=== PATIENT | female | born 1965 | race Hispanic/Latino ===

== ENCOUNTER 2021-10-02 10:39 | Inpatient (IN) | payer OTHER ==
[2021-10-02] VITALS (7 sets, daily range): BP systolic 124–141; BP diastolic 57–83
[~2021-10-02] VITALS: Ht 160 cm; Wt 65.8 kg
[2021-10-02 11:00] LABS: BASOPHILS % (AUTO) 0.2 % (0.0-5.0); EOSINOPHILS % (AUTO) 1.4 % (0.0-8.0); HEMATOCRIT 41.1 % (36-48); LYMPHOCYTES % (AUTO) 26.8 % (21.0-51.0); MEAN CORPUSCULAR HEMOGLOBIN 27.7 pg (27.0-33.0); MEAN CORPUSCULAR HGB CONC 33.6 g/dL (32.0-36.0); MEAN CORPUSCULAR VOLUME 82.5 fL (79-99); MONOCYTES % (AUTO) 4.9 % (3.0-13.0); NEUTROPHILS % (AUTO) 66.3 % (40.0-77.0); PLATELET COUNT (AUTO) 271 K/uL (130-400); RED BLOOD CELL COUNT(AUTO) 4.98 MIL/uL (4.00-5.50); RED CELL DISTRIBUTION WIDTH 12.6 % (11.0-15.5); WHITE BLOOD COUNT (AUTO) 5.7 K/uL (4.8-10.8)
[2021-10-02] MEDS ORDERED: 0.9%NACL 1000ML 1,000 ML IV ONE (11:00)
[2021-10-02 11:22] LABS: ALBUMIN 3.2 g/dL (3.5-5.0); BILIRUBIN,TOTAL 0.3 mg/dL (0.2-1.0); CREATININE 0.4 mg/dL (0.5-1.5); POTASSIUM 3.7 mmol/L (3.5-5.1); TOTAL PROTEIN, SERUM 6.5 g/dL (6.0-8.3)
[2021-10-02 11:55] LABS: ABG BASE EXCESS -0.4 mmol/L (-2.0-3.0); ABG HCO3 23.3 mmol/L (21.0-28.0); ABG OXYGEN SATURATION 97.5 % (95.0-99.0); ABG PCO2 36 mmHg (32-45)
[2021-10-02] MEDS ORDERED: ENOXAPARIN SODIUM 1 MG/KG SQ SCH (12:00)
[2021-10-02] MEDS ORDERED: ENOXAPARIN SODIUM 80 MG/0.8 ML SQ SCH (13:00)
[2021-10-02] MEDS ORDERED: INSULIN HUMULIN R 100 UNIT/ML 3ML IV ONE (13:00)
[2021-10-02 14:39] LABS: CREATININE 0.3 mg/dL (0.5-1.5); POTASSIUM 3.3 mmol/L (3.5-5.1)
[2021-10-02] MEDS ORDERED: POTASSIUM BICARB/CIT AC 25 MEQ TABLET.EFF PO ONE (15:30)
[2021-10-02] MEDS ORDERED: HYDRALAZINE 20MG/ML VIAL IV PRN (15:30)
[2021-10-02] MEDS ORDERED: DOCUSATE SODIUM 100 MG CAP PO PRN (15:30)
[2021-10-02] MEDS ORDERED: LABETALOL 20MG SYG IV PRN (15:30)
[2021-10-02] MEDS ORDERED: LACTULOSE 20 GM/30 ML UDCUP PO PRN (15:30)
[2021-10-02] MEDS ORDERED: ACETAMINOPHEN 650 MG SUPPOSITORY RC PRN (15:30)
[2021-10-02] MEDS ORDERED: ACETAMINOPHEN 325 MG TAB PO PRN (15:30)
[2021-10-02] MEDS ORDERED: ONDANSETRON 4MG INJ IVP PRN (15:30)
[2021-10-02] MEDS ORDERED: LIDOCAINE HCL-MPF 1% 2ML VIAL IV PRN (16:00)
[2021-10-02] MEDS ORDERED: POTASSIUM CHLORIDE 20MEQ/100ML 100 ML IV PRN (16:00)
[2021-10-02] MEDS ORDERED: POTASSIUM CHLORIDE 10% ELIXIR 20 MEQ/15 ML UDCUP PO PRN (16:00)
[2021-10-02] MEDS: KCL 20 MEQ ERTAB PO PRN ×2 (16:56→21:43)
[2021-10-02] MEDS: INSULIN HUMULIN R 100 UNIT/ML 3ML SQ SCH ×2 (16:58→21:32)
[2021-10-02] MEDS ORDERED: METF-445 PO (17:40)
[2021-10-02] MEDS: TRAMADOL HCL 50 MG TABLET PO PRN (21:38)
[2021-10-03] VITALS (7 sets, daily range): BP systolic 103–135; BP diastolic 59–79
[2021-10-03] MEDS: KCL 20 MEQ ERTAB PO PRN (02:10)
[2021-10-03 04:47] LABS: HEMATOCRIT 39.2 % (36-48); MEAN CORPUSCULAR HEMOGLOBIN 27.5 pg (27.0-33.0); MEAN CORPUSCULAR HGB CONC 32.9 g/dL (32.0-36.0); MEAN CORPUSCULAR VOLUME 83.6 fL (79-99); RED BLOOD CELL COUNT(AUTO) 4.69 MIL/uL (4.00-5.50); RED CELL DISTRIBUTION WIDTH 12.8 % (11.0-15.5); WHITE BLOOD COUNT (AUTO) 7.6 K/uL (4.8-10.8)
[2021-10-03 04:54] LABS: HEMOGLOBIN A1C 12.9 % (4.0-6.0)
[2021-10-03 05:22] LABS: MAGNESIUM 1.7 mg/dL (1.80-2.40); PHOSPHORUS 4.3 mg/dL (2.5-4.9); POTASSIUM 3.6 mmol/L (3.5-5.1); THYROID STIMULATING HORMONE 2.83 uIU/mL (0.36-3.74)
[2021-10-03] MEDS: INSULIN GLARGINE 100 UNITS/ML 10 ML VIAL SQ SCH (06:06)
[2021-10-03] MEDS: TRAMADOL HCL 50 MG TABLET PO PRN ×3 (06:10→23:25)
[2021-10-03] MEDS: MAGNESIUM 2GM PREMIX 50ML 50 ML IV PRN (06:12)
[2021-10-03] MEDS: INSULIN HUMULIN R 100 UNIT/ML 3ML SQ SCH ×4 (06:48→20:08)
[2021-10-03] MEDS ORDERED: NITROGLYCERIN 0.4 MG SL TAB SL PRN (08:30)
[2021-10-03] MEDS: ASPIRIN 81 MG EC TAB PO SCH (09:00)
[2021-10-03 09:40] LABS: CHOLESTEROL 232 mg/dL (<200); HDL CHOLESTEROL 32 mg/dL (35-85); LDL DIRECT 149 mg/dL (0-99); TRIGLYCERIDES 263 mg/dL (30-200)
[2021-10-03] MEDS: CARBIDOPA-LEVODOPA 25-100 TAB PO SCH ×2 (14:33→20:06)
[2021-10-03] MEDS: PANTOPRAZOLE 40 MG/VIAL IVP SCH (20:05)
[2021-10-03] MEDS: ATORVASTATIN 40 MG TABLET PO SCH (20:06)
[2021-10-04] VITALS (11 sets, daily range): BP systolic 110–129; BP diastolic 54–74
[2021-10-04 04:44] LABS: HEMATOCRIT 40.8 % (36-48); MEAN CORPUSCULAR HEMOGLOBIN 27.5 pg (27.0-33.0); MEAN CORPUSCULAR HGB CONC 32.8 g/dL (32.0-36.0); MEAN CORPUSCULAR VOLUME 83.8 fL (79-99); RED BLOOD CELL COUNT(AUTO) 4.87 MIL/uL (4.00-5.50); RED CELL DISTRIBUTION WIDTH 12.8 % (11.0-15.5); WHITE BLOOD COUNT (AUTO) 5.9 K/uL (4.8-10.8)
[2021-10-04 05:14] LABS: ALBUMIN 2.9 g/dL (3.5-5.0); BILIRUBIN,TOTAL 0.4 mg/dL (0.2-1.0); CREATININE 0.4 mg/dL (0.5-1.5); MAGNESIUM 1.9 mg/dL (1.80-2.40); POTASSIUM 3.7 mmol/L (3.5-5.1); TOTAL PROTEIN, SERUM 6.2 g/dL (6.0-8.3)
[2021-10-04] MEDS: INSULIN HUMULIN R 100 UNIT/ML 3ML SQ SCH ×4 (06:25→20:46)
[2021-10-04] MEDS: INSULIN GLARGINE 100 UNITS/ML 10 ML VIAL SQ SCH (06:26)
[2021-10-04 06:37] LABS: APPEARANCE,URINE Clear (CLEAR); BILIRUBIN,URINE Negative (NEGATIVE); COLOR,URINE Yellow (YELLOW); GLUCOSE, URINE (UA) 500 mg/dL (NEGATIVE); KETONES,URINE Negative (NEGATIVE); LEUKOCYTE ESTERASE ,URINE Trace (NEGATIVE); NITRATE,URINE Negative (NEGATIVE); OCCULT BLOOD,URINE Negative (NEGATIVE); PROTEIN,URINE Negative (NEGATIVE); UROBILINOGEN,URINE 0.2 mg/dL (0.2-1.0)
[2021-10-04 07:02] LABS: BACTERIA,URINE Rare /HPF (None Seen); MUCUS,URINE Rare LPF (None Seen); RBC,URINE None Seen /HPF (0-1); SQUAMOUS EPITHELIAL CELL,UR Few /HPF (0-2); WBC,URINE 0-1 /HPF (0-1)
[2021-10-04] MEDS: PANTOPRAZOLE 40 MG/VIAL IVP SCH ×2 (10:04→20:41)
[2021-10-04] MEDS: ASPIRIN 81 MG EC TAB PO SCH (10:04)
[2021-10-04] MEDS: CARBIDOPA-LEVODOPA 25-100 TAB PO SCH ×3 (10:04→20:41)
[2021-10-04] MEDS: IBUPROFEN 800 MG TAB PO PRN ×2 (12:09→21:59)
[2021-10-04] MEDS: KCL 20 MEQ ERTAB PO PRN (12:10)
[2021-10-04] MEDS: ACETAMINOPHEN WITH CODEINE 1 TAB TAB PO PRN (19:28)
[2021-10-04] MEDS: ATORVASTATIN 40 MG TABLET PO SCH (20:41)
[2021-10-04] MEDS: MAGNESIUM 2GM PREMIX 50ML 50 ML IV PRN (20:42)
[2021-10-05] VITALS (8 sets, daily range): BP systolic 105–125; BP diastolic 62–71
[2021-10-05 05:06] LABS: POTASSIUM 4.6 mmol/L (3.5-5.1)
[2021-10-05] MEDS: INSULIN GLARGINE 100 UNITS/ML 10 ML VIAL SQ SCH (05:52)
[2021-10-05] MEDS: INSULIN HUMULIN R 100 UNIT/ML 3ML SQ SCH ×3 (05:52→16:30)
[2021-10-05] MEDS: ACETAMINOPHEN WITH CODEINE 1 TAB TAB PO PRN (05:53)
[2021-10-05] MEDS ORDERED: GABAPENTIN 100 MG CAPSULE PO SCH (09:00)
[2021-10-05] MEDS: PANTOPRAZOLE 40 MG/VIAL IVP SCH (09:50)
[2021-10-05] MEDS: ASPIRIN 81 MG EC TAB PO SCH (09:51)
[2021-10-05] MEDS: CARBIDOPA-LEVODOPA 25-100 TAB PO SCH ×2 (09:51→13:45)
[2021-10-05] MEDS ORDERED: IBUPROFEN 800 MG TAB PO SCH (13:30)
[2021-10-05] MEDS ORDERED: ATOR40TA69 PO (16:45)
[2021-10-05] MEDS ORDERED: CARB1TAB20 PO (16:45)
[2021-10-05] MEDS ORDERED: GABA100C PO (16:45)
[2021-10-05] MEDS ORDERED: AEC81 PO (16:45)
== END 2021-10-05 18:30 | disposition home or self-care (01) | DRG 312 ==
LOC: EDBD 10:39 → EDH 10:39 → EDHIP 15:29 → OBSVTOIN 15:29 → 3DH 16:20
PROVIDERS: ADMIT Internal Medicine Critical Care Medicine; ATTEND Internal Medicine Critical Care Medicine
DX: R55 Syncope and collapse (principal); I31.3 Pericardial effusion (noninflammatory); E78.00 Pure hypercholesterolemia, unspecified; E11.9 Type 2 diabetes mellitus without complications; E86.0 Dehydration; R01.1 Cardiac murmur, unspecified; Z79.899 Other long term (current) drug therapy; E11.65 Type 2 diabetes mellitus with hyperglycemia; E78.5 Hyperlipidemia, unspecified; W18.39XA Other fall on same level, initial encounter; Y93.89 Activity, other specified; Y92.89 Other specified places as the place of occurrence of the external cause; Y99.8 Other external cause status
CPT/HCPCS: 36415; 36600; 70450; 72131; 73502; 73562; 73700; 80048; 80053; 80061; 81001; 82010; 82550; 82803; 82948; 83036; 83735; 83874; 84100; 84132; 84145; 84443; 84484; 84550; 85025; 85027; 93005; 93306; 93880; 99291; C9113; G0378; J1650; J1815; J2405; J3475

== ENCOUNTER 2023-01-04 22:17 | Inpatient (IN) | payer OTHER ==
[~2023-01-04] VITALS: Ht 160 cm; Wt 64.8 kg
[~2023-01-04 22:17] MED LIST: AEC81 PO; ATOR40TA69 PO; CARB1TAB35 PO; GABA100C PO; METF-445 PO
[2023-01-04 22:42] LABS: BASOPHILS # (AUTO) 0.03 K/uL (0.00-0.20); BASOPHILS % (AUTO) 0.2 % (0.0-5.0); EOSINOPHILS # (AUTO) 0.04 K/uL (0.00-0.70); EOSINOPHILS % (AUTO) 0.3 % (0.0-8.0); HEMATOCRIT 33.1 % (36-48); IMMATURE GRANULOCYTE ABSOLUTE 0.11 K/uL (0-1); LYMPHOCYTES # (AUTO) 1.5 K/uL (1.0-4.8); LYMPHOCYTES % (AUTO) 11.3 % (21.0-51.0); MEAN CORPUSCULAR HEMOGLOBIN 24.8 pg (27.0-33.0); MEAN CORPUSCULAR HGB CONC 31.4 g/dL (32.0-36.0); MONOCYTES # (AUTO) 0.9 K/uL (0.1-1.0); MONOCYTES % (AUTO) 6.9 % (3.0-13.0); NEUTROPHILS # (AUTO) 10.5 K/uL (1.8-7.7); NEUTROPHILS % (AUTO) 80.5 % (40.0-77.0); PLATELET COUNT (AUTO) 351 K/uL (130-400); RED BLOOD CELL COUNT(AUTO) 4.19 MIL/uL (4.00-5.50); RED CELL DISTRIBUTION WIDTH 13.5 % (11.0-15.5)
[2023-01-04 22:57] LABS: CREATININE 0.5 mg/dL (0.5-1.5); POTASSIUM 3.9 mmol/L (3.5-5.1)
[2023-01-04 23:02] LABS: ALBUMIN 2.6 g/dL (3.5-5.0); BILIRUBIN,TOTAL 0.4 mg/dL (0.2-1.0); TOTAL PROTEIN, SERUM 7.1 g/dL (6.0-8.3)
[2023-01-04 23:46] VITALS: TEMP 99.6
[2023-01-05] MEDS ORDERED: ACETAMINOPHEN 325 MG TAB PO ONE
[2023-01-05] MEDS ORDERED: GLUCAGON 1MG KIT 1 MG ML IM PRN (03:00)
[2023-01-05] MEDS ORDERED: ACETAMINOPHEN 325 MG TAB PO PRN (03:00)
[2023-01-05] MEDS ORDERED: ONDANSETRON 4MG INJ IV PRN (03:00)
[2023-01-05] MEDS ORDERED: DEXTROSE 50%-WATER 50 ML DISP.SYRIN IV PRN (03:00)
[2023-01-05] MEDS: 0.9%NACL 1000ML 1,000 ML IV SCH ×2 (04:14→16:32)
[2023-01-05 05:36] LABS: APPEARANCE,URINE CLEAR (CLEAR); BILIRUBIN,URINE NEGATIVE (NEGATIVE); COLOR,URINE LIGHT-YELLOW (YELLOW); GLUCOSE, URINE (UA) >=1000 mg/dL (NEGATIVE); KETONES,URINE 100 mg/dL (NEGATIVE); LEUKOCYTE ESTERASE ,URINE 25 Leu/uL (NEGATIVE); NITRATE,URINE NEGATIVE (NEGATIVE); OCCULT BLOOD,URINE NEGATIVE (NEGATIVE); PROTEIN,URINE NEGATIVE (NEGATIVE); UROBILINOGEN,URINE 0.2 mg/dL (0.2-1.0)
[2023-01-05 05:37] LABS: ADD UA MICROSCOPIC YES
[2023-01-05 05:40] LABS: MUCUS,URINE RARE LPF (None Seen); RBC,URINE 0-1 /HPF (0-1); SQUAMOUS EPITHELIAL CELL,UR RARE /HPF (0-2)
[2023-01-05 05:57] LABS: HEMATOCRIT 28.4 % (36-48); MEAN CORPUSCULAR HEMOGLOBIN 25.3 pg (27.0-33.0); MEAN CORPUSCULAR VOLUME 78.9 fL (79-99); RED BLOOD CELL COUNT(AUTO) 3.6 MIL/uL (4.00-5.50); RED CELL DISTRIBUTION WIDTH 13.4 % (11.0-15.5); WHITE BLOOD COUNT (AUTO) 12.1 K/uL (4.8-10.8)
[2023-01-05 06:31] LABS: ALBUMIN 2.3 g/dL (3.5-5.0); BILIRUBIN,TOTAL 0.5 mg/dL (0.2-1.0); CREATININE 0.4 mg/dL (0.5-1.5); POTASSIUM 3.4 mmol/L (3.5-5.1); TOTAL PROTEIN, SERUM 6.5 g/dL (6.0-8.3)
[2023-01-05] MEDS: INSULIN HUMULIN R 100 UNIT/ML 3ML SQ SCH ×6 (08:50→20:58)
[2023-01-05] MEDS: FAMOTIDINE 20MG TAB PO SCH ×2 (08:51→20:58)
[2023-01-05] MEDS: ASPIRIN 81 MG EC TAB PO SCH (08:51)
[2023-01-05] MEDS: CLINDAMYCIN IVPB 600MG/50ML 50 ML IV SCH ×2 (09:46→17:57)
[2023-01-05] MEDS: KETOROLAC 15MG/ML VIAL (15MG/ML) IV PRN ×2 (09:47→17:58)
[2023-01-05 10:29] LABS: % IRON SATURATION 3.5 % (22-44)
[2023-01-05 11:02] LABS: CRP QUANTITATIVE 182.1 mg/L (0.00-9.0)
[2023-01-05] MEDS ORDERED: AMOX1TAB16 PO (11:33)
[2023-01-05] MEDS ORDERED: SULF1TAB42 PO (11:33)
[2023-01-05] MEDS ORDERED: DIPH25CA53 PO (11:33)
[2023-01-05 18:50] VITALS: BP 120/53; PULSE 75; RESP 21
[2023-01-05 19:00] VITALS: BP 110/56; PULSE 73; RESP 20
[2023-01-05 19:20] VITALS: O2SAT 98
[2023-01-05] MEDS ORDERED: POTASSIUM CHLORIDE 20MEQ/100ML 100 ML IV PRN (20:30)
[2023-01-05] MEDS ORDERED: POTASSIUM CHLORIDE 10% ELIXIR 20 MEQ/15 ML UDCUP PO PRN (20:30)
[2023-01-05] MEDS: INSULIN GLARGINE 100 UNITS/ML 10 ML VIAL SQ SCH (20:51)
[2023-01-05] MEDS: KCL 20 MEQ ERTAB PO PRN (20:59)
[2023-01-06] VITALS (7 sets, daily range): BP systolic 108–135; BP diastolic 54–68; PULSE 71–82; RESP 16–20; O2SAT 96
[2023-01-06] MEDS: CLINDAMYCIN IVPB 600MG/50ML 50 ML IV SCH ×3 (00:22→17:45)
[2023-01-06] MEDS: KCL 20 MEQ ERTAB PO PRN (00:22)
[2023-01-06] MEDS: 0.9%NACL 1000ML 1,000 ML IV SCH ×2 (00:27→17:45)
[2023-01-06] MEDS: KETOROLAC 15MG/ML VIAL (15MG/ML) IV PRN (00:27)
[2023-01-06] MEDS: INSULIN HUMULIN R 100 UNIT/ML 3ML SQ SCH ×7 (05:50→21:55)
[2023-01-06 05:52] LABS: BASOPHILS # (AUTO) 0.02 K/uL (0.00-0.20); BASOPHILS % (AUTO) 0.2 % (0.0-5.0); EOSINOPHILS # (AUTO) 0.13 K/uL (0.00-0.70); EOSINOPHILS % (AUTO) 1.2 % (0.0-8.0); HEMATOCRIT 30.6 % (36-48); IMMATURE GRANULOCYTE ABSOLUTE 0.11 K/uL (0-1); LYMPHOCYTES # (AUTO) 1.8 K/uL (1.0-4.8); LYMPHOCYTES % (AUTO) 16.8 % (21.0-51.0); MEAN CORPUSCULAR HEMOGLOBIN 25.3 pg (27.0-33.0); MEAN CORPUSCULAR HGB CONC 31.7 g/dL (32.0-36.0); MEAN CORPUSCULAR VOLUME 79.7 fL (79-99); MONOCYTES # (AUTO) 0.9 K/uL (0.1-1.0); MONOCYTES % (AUTO) 8.9 % (3.0-13.0); NEUTROPHILS # (AUTO) 7.5 K/uL (1.8-7.7); NEUTROPHILS % (AUTO) 71.8 % (40.0-77.0); PLATELET COUNT (AUTO) 328 K/uL (130-400); RED BLOOD CELL COUNT(AUTO) 3.84 MIL/uL (4.00-5.50); RED CELL DISTRIBUTION WIDTH 13.8 % (11.0-15.5); WHITE BLOOD COUNT (AUTO) 10.4 K/uL (4.8-10.8)
[2023-01-06 06:25] LABS: ALBUMIN 2.1 g/dL (3.5-5.0); ASPARTATE AMINOTRANSFERASE 8 U/L (10-37); BILIRUBIN,TOTAL 0.3 mg/dL (0.2-1.0); CARBON DIOXIDE 23 mmol/L (21-32); CHLORIDE 103 mmol/L (101-111); CREATININE 0.4 mg/dL (0.5-1.5); GLOMERULAR FILTR. RATE CALC 115 mL/min (>90); GLUCOSE,RANDOM 193 mg/dL (70-105); POTASSIUM 3.9 mmol/L (3.5-5.1); SODIUM SERUM 136 mmol/L (136-145); TOTAL PROTEIN, SERUM 6.1 g/dL (6.0-8.3); UREA NITROGEN, BLOOD 11 mg/dL (7-18)
[2023-01-06 06:27] LABS: ALANINE AMINOTRANSFERASE < 6 U/L (12-78)
[2023-01-06] MEDS: ASPIRIN 81 MG EC TAB PO SCH (08:21)
[2023-01-06] MEDS: FAMOTIDINE 20MG TAB PO SCH ×2 (08:21→19:44)
[2023-01-06] MEDS ORDERED: VANCOMYCIN PROTOCOL PER PHARMACY IV SCH (09:30)
[2023-01-06] MEDS: CEFEPIME HCL 1 GM VIAL IVPB SCH ×2 (10:23→17:07)
[2023-01-06] MEDS: VANCOMYCIN 1G/250ML KIT 250 ML IV SCH ×2 (10:44→23:02)
[2023-01-06] MEDS ORDERED: GADOTERATE MEGLUMINE 10 MMOL/20 ML VIAL IV ONE (11:14)
[2023-01-06] MEDS: ACETAMINOPHEN 325 MG TAB PO PRN (17:52)
[2023-01-06] MEDS: INSULIN GLARGINE 100 UNITS/ML 10 ML VIAL SQ SCH (21:54)
[2023-01-07] VITALS (9 sets, daily range): BP systolic 107–157; BP diastolic 52–71; PULSE 67–76; RESP 16–21; O2SAT 97–99
[2023-01-07] MEDS: KETOROLAC 15MG/ML VIAL (15MG/ML) IV PRN ×2 (01:49→09:43)
[2023-01-07] MEDS: CEFEPIME HCL 1 GM VIAL IVPB SCH ×3 (01:50→17:07)
[2023-01-07] MEDS: CLINDAMYCIN IVPB 600MG/50ML 50 ML IV SCH ×3 (03:00→17:08)
[2023-01-07 05:26] LABS: BASOPHILS # (AUTO) 0.02 K/uL (0.00-0.20); BASOPHILS % (AUTO) 0.3 % (0.0-5.0); EOSINOPHILS % (AUTO) 1.4 % (0.0-8.0); HEMATOCRIT 28.6 % (36-48); IMMATURE GRANULOCYTE ABSOLUTE 0.07 K/uL (0-1); LYMPHOCYTES # (AUTO) 1.5 K/uL (1.0-4.8); LYMPHOCYTES % (AUTO) 20.5 % (21.0-51.0); MEAN CORPUSCULAR HEMOGLOBIN 25.2 pg (27.0-33.0); MEAN CORPUSCULAR HGB CONC 31.8 g/dL (32.0-36.0); MEAN CORPUSCULAR VOLUME 79.2 fL (79-99); MONOCYTES # (AUTO) 0.6 K/uL (0.1-1.0); MONOCYTES % (AUTO) 8.2 % (3.0-13.0); NEUTROPHILS % (AUTO) 68.6 % (40.0-77.0); PLATELET COUNT (AUTO) 312 K/uL (130-400); RED BLOOD CELL COUNT(AUTO) 3.61 MIL/uL (4.00-5.50); RED CELL DISTRIBUTION WIDTH 13.8 % (11.0-15.5); WHITE BLOOD COUNT (AUTO) 7.3 K/uL (4.8-10.8)
[2023-01-07 05:31] LABS: RETICULOCYTE % (AUTO) 1.23 % (0.42-2.23)
[2023-01-07 05:33] LABS: % IRON SATURATION 2.9 % (22-44)
[2023-01-07 06:15] LABS: ALBUMIN 1.8 g/dL (3.5-5.0); BILIRUBIN,TOTAL 0.2 mg/dL (0.2-1.0); CREATININE 0.4 mg/dL (0.5-1.5); POTASSIUM 3.5 mmol/L (3.5-5.1); TOTAL PROTEIN, SERUM 5.6 g/dL (6.0-8.3)
[2023-01-07] MEDS: INSULIN HUMULIN R 100 UNIT/ML 3ML SQ SCH ×7 (06:43→21:00)
[2023-01-07] MEDS: ACETAMINOPHEN 325 MG TAB PO PRN (06:48)
[2023-01-07] MEDS: ASPIRIN 81 MG EC TAB PO SCH (08:49)
[2023-01-07] MEDS: 0.9%NACL 1000ML 1,000 ML IV SCH ×2 (08:49→11:57)
[2023-01-07] MEDS: FAMOTIDINE 20MG TAB PO SCH ×2 (08:49→21:02)
[2023-01-07] MEDS ORDERED: EPOETIN ALFA-EPBX (NON-ESRD) 10,000 UNIT/ML VIAL SQ SCH (09:30)
[2023-01-07] MEDS: KCL 20 MEQ ERTAB PO PRN ×2 (09:44→13:38)
[2023-01-07] MEDS: VANCOMYCIN 1G/250ML KIT 250 ML IV SCH (11:50)
[2023-01-07] MEDS: INSULIN GLARGINE 100 UNITS/ML 10 ML VIAL SQ SCH (21:02)
[2023-01-08] VITALS (7 sets, daily range): BP systolic 120–138; BP diastolic 58–70; PULSE 65–74; RESP 18; O2SAT 97–98
[2023-01-08] MEDS: VANCOMYCIN 1G/250ML KIT 250 ML IV SCH (00:03)
[2023-01-08] MEDS: CEFEPIME HCL 1 GM VIAL IVPB SCH ×3 (02:02→16:41)
[2023-01-08] MEDS: CLINDAMYCIN IVPB 600MG/50ML 50 ML IV SCH ×3 (02:25→18:17)
[2023-01-08 06:10] LABS: BASOPHILS # (AUTO) 0.02 K/uL (0.00-0.20); BASOPHILS % (AUTO) 0.2 % (0.0-5.0); EOSINOPHILS # (AUTO) 0.14 K/uL (0.00-0.70); EOSINOPHILS % (AUTO) 1.6 % (0.0-8.0); HEMATOCRIT 29.6 % (36-48); IMMATURE GRANULOCYTE ABSOLUTE 0.05 K/uL (0-1); LYMPHOCYTES # (AUTO) 1.7 K/uL (1.0-4.8); LYMPHOCYTES % (AUTO) 19.7 % (21.0-51.0); MEAN CORPUSCULAR HGB CONC 31.4 g/dL (32.0-36.0); MEAN CORPUSCULAR VOLUME 79.6 fL (79-99); MONOCYTES # (AUTO) 0.8 K/uL (0.1-1.0); MONOCYTES % (AUTO) 8.9 % (3.0-13.0); PLATELET COUNT (AUTO) 333 K/uL (130-400); RED BLOOD CELL COUNT(AUTO) 3.72 MIL/uL (4.00-5.50); RED CELL DISTRIBUTION WIDTH 13.9 % (11.0-15.5); WHITE BLOOD COUNT (AUTO) 8.8 K/uL (4.8-10.8)
[2023-01-08 06:38] LABS: BILIRUBIN,TOTAL 0.2 mg/dL (0.2-1.0); CREATININE 0.5 mg/dL (0.5-1.5); POTASSIUM 4.4 mmol/L (3.5-5.1); TOTAL PROTEIN, SERUM 6.3 g/dL (6.0-8.3)
[2023-01-08] MEDS: INSULIN HUMULIN R 100 UNIT/ML 3ML SQ SCH ×7 (06:38→21:00)
[2023-01-08] MEDS ORDERED: PHARMACY COMMUNICATION MISC SCH (08:00)
[2023-01-08] MEDS: FAMOTIDINE 20MG TAB PO SCH ×2 (08:51→20:57)
[2023-01-08] MEDS ORDERED: GLIM4TAB36 PO (10:02)
[2023-01-08] MEDS ORDERED: METF-446 PO (10:02)
[2023-01-08] MEDS: 0.9%NACL 1000ML 1,000 ML IV SCH ×2 (11:00→23:51)
[2023-01-08] MEDS: VANCOMYCIN 1.25 GM/250 ML BAG 250 ML IV SCH ×2 (11:46→23:51)
[2023-01-08] MEDS: ASPIRIN 81 MG EC TAB PO SCH (11:49)
[2023-01-08] MEDS: ACETAMINOPHEN 325 MG TAB PO PRN (17:43)
[2023-01-08] MEDS: INSULIN GLARGINE 100 UNITS/ML 10 ML VIAL SQ SCH (21:07)
[2023-01-09] MEDS: CEFEPIME HCL 1 GM VIAL IVPB SCH ×2 (00:39→09:20)
[2023-01-09] MEDS: CLINDAMYCIN IVPB 600MG/50ML 50 ML IV SCH ×2 (01:40→09:22)
[2023-01-09 04:15] LABS: BASOPHILS # (AUTO) 0.02 K/uL (0.00-0.20); BASOPHILS % (AUTO) 0.2 % (0.0-5.0); EOSINOPHILS # (AUTO) 0.22 K/uL (0.00-0.70); EOSINOPHILS % (AUTO) 2.7 % (0.0-8.0); HEMATOCRIT 30.1 % (36-48); IMMATURE GRANULOCYTE ABSOLUTE 0.04 K/uL (0-1); LYMPHOCYTES # (AUTO) 1.9 K/uL (1.0-4.8); LYMPHOCYTES % (AUTO) 23.6 % (21.0-51.0); MEAN CORPUSCULAR HEMOGLOBIN 24.9 pg (27.0-33.0); MEAN CORPUSCULAR HGB CONC 31.2 g/dL (32.0-36.0); MEAN CORPUSCULAR VOLUME 79.8 fL (79-99); MONOCYTES # (AUTO) 0.7 K/uL (0.1-1.0); MONOCYTES % (AUTO) 8.3 % (3.0-13.0); NEUTROPHILS # (AUTO) 5.2 K/uL (1.8-7.7); NEUTROPHILS % (AUTO) 64.7 % (40.0-77.0); PLATELET COUNT (AUTO) 322 K/uL (130-400); RED BLOOD CELL COUNT(AUTO) 3.77 MIL/uL (4.00-5.50)
[2023-01-09 04:32] LABS: ALANINE AMINOTRANSFERASE < 6 U/L (12-78); ASPARTATE AMINOTRANSFERASE 11 U/L (10-37); BILIRUBIN,TOTAL 0.2 mg/dL (0.2-1.0); CARBON DIOXIDE 25 mmol/L (21-32); CHLORIDE 105 mmol/L (101-111); CREATININE 0.4 mg/dL (0.5-1.5); GLOMERULAR FILTR. RATE CALC 115 mL/min (>90); GLUCOSE,RANDOM 123 mg/dL (70-105); POTASSIUM 4.3 mmol/L (3.5-5.1); SODIUM SERUM 137 mmol/L (136-145); TOTAL PROTEIN, SERUM 6.3 g/dL (6.0-8.3); UREA NITROGEN, BLOOD 12 mg/dL (7-18)
[2023-01-09 05:14] VITALS: BP 125/70; PULSE 78; RESP 19
[2023-01-09] MEDS: INSULIN HUMULIN R 100 UNIT/ML 3ML SQ SCH ×2 (07:30)
[2023-01-09 08:00] VITALS: BP 125/83; PULSE 76; RESP 18; O2SAT 99
[2023-01-09] MEDS ORDERED: CEPH500C2 PO (08:36)
[2023-01-09] MEDS: FAMOTIDINE 20MG TAB PO SCH (09:20)
[2023-01-09] MEDS: ASPIRIN 81 MG EC TAB PO SCH (09:20)
[2023-01-09 12:00] VITALS: BP 124/50; PULSE 71; RESP 18
[2023-01-09] MEDS ORDERED: VANCOMYCIN 1.25 GM/250 ML BAG 250 ML IV SCH (13:00)
== END 2023-01-09 12:55 | disposition home or self-care (01) | DRG 871 ==
LOC: EDH 22:17 → EDHIP 22:18 → 4CH 01-05 18:44
PROVIDERS: ADMIT Hospitalist; ATTEND Hospitalist
DX: A41.9 Sepsis, unspecified organism (principal); I21.A1 Myocardial infarction type 2; E46 Unspecified protein-calorie malnutrition; L03.116 Cellulitis of left lower limb; E87.1 Hypo-osmolality and hyponatremia; D64.9 Anemia, unspecified; E11.621 Type 2 diabetes mellitus with foot ulcer; E11.622 Type 2 diabetes mellitus with other skin ulcer; E11.628 Type 2 diabetes mellitus with other skin complications; E11.65 Type 2 diabetes mellitus with hyperglycemia; E66.9 Obesity, unspecified; E78.00 Pure hypercholesterolemia, unspecified; E86.0 Dehydration; G20 Parkinson's disease; I10 Essential (primary) hypertension; L97.529 Non-pressure chronic ulcer of other part of left foot with unspecified severity; S91.332A Puncture wound without foreign body, left foot, initial encounter; W60.XXXA Contact with nonvenomous plant thorns and spines and sharp leaves, initial encounter; Y93.89 Activity, other specified; Y92.89 Other specified places as the place of occurrence of the external cause; Y99.8 Other external cause status; Z68.25 Body mass index [BMI] 25.0-25.9, adult
CPT/HCPCS: 36415; 73630; 73720; 80053; 80202; 81001; 82728; 82948; 83036; 83540; 83550; 83605; 84132; 84145; 84484; 85025; 85027; 85045; 85651; 86140; 87040; 87070; 87076; 87088; 93005; 93926; 93970; G0378; J0692; J1815; J1885; J3370; J3490; J7030; 3370; A4600; A9575; Q5106